=== PATIENT | male | born 1950 | race Caucasian/White ===

== ENCOUNTER → 2016-05-23 | Outpatient (CLI) | payer SELFPAY ==
--- NOTE | 2016-05-23 15:44 | KCIC ---
Coronary calcium score CT chest without contrast. Indication: Cardiovascular screening Reason For Study CT CALCIUM SCORING TECHNIQUE With retrospective electrocardiogram gaiting, axial reconstructed noncontrast images of the chest at the level of the heart were performed. Images were post processed on an independent workstation and calcium score was calculated. FINDINGS Total coronary calcium score is 0. This places the patient in the lowest percentile rank. This means that nearly all men of this age have a higher calcium score. There is no calcified plaque burden and very low cardiovascular risk. This is based on the calcium score of 0 of the left main coronary artery, 0 of the left anterior descending artery, score of 0 involving the left circumflex artery and score of 0 of the right coronary artery. Non coronary findings show no acute abnormality. IMPRESSION Total coronary calcium score is 0. This places the patient in the lowest percentile rank. This means that nearly all women of this age have a higher calcium score. There is no calcified plaque burden and very low cardiovascular risk. Electronically signed by: Cruz Balderrama (May 23, 2016 15:42:07)
== END | disposition home or self-care (01) ==
LOC: KCIC CT 08:15
PROVIDERS: ATTEND Family Medicine
DX: Z13.6 Encounter for screening for cardiovascular disorders (principal); I10 Essential (primary) hypertension; E78.00 Pure hypercholesterolemia, unspecified
CPT/HCPCS: 75571